=== PATIENT | female | born 1980 ===

== ENCOUNTER 2025-07-07 09:48 | Emergency (ER) | payer OTHER, SELFPAY ==
[2025-07-07] VITALS (7 sets, daily range): BP systolic 126–154; BP diastolic 54–76; PULSE 67–91; RESP 16–20; TEMP 36.9–37.2; O2SAT 96–99; BMI 26.8
--- NOTE | ~2025-07-07 | XR_ITS ---
EXAMINATION: XR LUMBOSACRAL SPINE CLINICAL INFORMATION: atraumatic low back pain COMPARISON: None available. TECHNIQUE: AP and lateral views. FINDINGS: Levoconvex curvature of the lumbar spine. Grade 1 anterolisthesis L4-5. Mild endplate sclerosis at multiple levels. Decreased intervertebral disc height at L4-5. Cylindrical shaped structure overlapping the left hemisacrum. Exact location. XR/XR lumbar spine 2-3V IMPRESSION: Spondylosis and Grade 1 anterolisthesis L4-5. Levoconvex scoliosis. Electronically signed by: Pedro Chandler MD 07/07/2025 02:15 PM EDT
--- NOTE | ~2025-07-07 | CT_ITS ---
CLINICAL HISTORY: right flank pain, white count CT abdomen and pelvis with contrast Comparison: None available Findings: No consolidation at the lung bases. Unremarkable gallbladder and bladder. No hydronephrosis or nephrolithiasis. The kidneys enhance normally. 2.0 cm right corpus luteum. Fibroid uterus. The other solid organs are unremarkable. No bowel wall thickening or dilation. A normal appendix is identified. No aneurysm. [id number] calcified atherosclerotic disease. No lymphadenopathy. No ascites. No acute osseous abnormality. Impression: No acute pathology. Right lower quadrant pain could be secondary to a normal right corpus luteum. This document has been electronically signed by: Yvrose Chang MD on 07/07/2025 18:27:43
--- OUTSIDE RECORDS SUMMARY | 2025-07-07 13:23 | XMS_ITS | Clinical Summary ---
Author Organization [facility] Address [address] [place] [address] Phone Care Team Providers Care Insecticide Sprayer Name Role Phone Sandhya Aleman NP Primary Care Provider + Allergies Active Allergy Reactions Criticality Noted Date Comments Penicillin 02/14/2025 Medical History Medical History Date Comments Diabetes ([facility] V24, [facility] V28) DX:Diabetes ([facility]) Asthma DX:Asthma Diabetes mellitus type 2 in nonobese ([facility] V24, [facility] V28) 04/05/2019 DX:Diabetes mellitus type 2 in nonobese ([facility]) Family History Medical History Relation Name Comments Breast cancer Mother Relation Name Status Comments Mother Social History Tobacco Use Types Packs/Day Years Used Date Smoking Tobacco: Every Day Smokeless Tobacco: Never Alcohol Use Standard Drinks/Week Comments Yes 0 (1 standard drink = 0.6 oz pur e alcohol) Comments Unknown Sex and Gender Information Value Date Recorded Sex Assigned at Not on file Legal Sex Female 8:01 AM EST Gender Identity Not on file Sexual Orientation Not on file Obstetrics History Last Filed Vital Signs Vital Sign Reading Time Taken Comments Blood Pressure 126/89 02/14/2025 9:52 AM EDT Pulse 88 02/14/2025 9:52 AM EDT Temperature 36.9 C (98.4 F) 02/14/2025 9:52 AM EDT Respiratory Rate 18 02/14/2025 9:52 AM EDT Oxygen Saturation 99% 02/14/2025 9:52 AM EDT Inhaled Oxygen Concentration - - Weight 77.1 kg (170 lb) 02/14/2025 9:52 AM EDT Height 170.2 cm (5' 7 ) 02/14/2025 9:52 AM EDT Body Mass Index 26.63 02/14/2025 9:52 AM EDT Plan of Treatment Health Maintenance Due Date Last Done Comments Diabetes: Annual Foot Exam 1988 Diabetes: Annual Retina Eye Exam 1988 DTaP,Tdap,and Td Vaccines (1 - Tdap) 1997 Hepatitis B Vaccines (1 of 3 - 19+ 3-dose series) 1997 Pneumococcal Vaccine: Pediatrics (0 to 5 Years) and At-Risk Patients (6 to 49 Years) (1 of 2 - PCV) 1997 Cervical Cancer Screening: Pap Smear 1999 Cholesterol Screening (Lipid Panel) 11/03/2022 Colorectal Cancer Screening: Colonoscopy 11/03/2022 HIV Screening 11/03/2022 Hepatitis C Screening 11/03/2022 Social Influencers of Health Screening 11/03/2022 Diabetes: Annual Urine Albumin-Creatinine Ratio (uACR) 11/15/2022 Diabetes: Blood Sugar Control Test (HGBA1C) 11/15/2022 COVID-19 Vaccine ( season) 2024 05/16/2022, 11/07/2021, 10/17/2021 Depression Screening 12/01/2024 Breast Cancer Screening 06/12/2025 06/12/20 23, 01/14/2022, 01/08/2021, Additional history exists Influenza Vaccine (#1) 2025 12/21/2024, 2019 Diabetes: Annual GFR (Glomerular Filtration Rate) 02/14/2026 02/14/2025 HIB Vaccines Aged Out No longer eligi ble based on patient's age to complete this topic HPV Vaccines Aged Out No longer eligi ble based on patient's age to complete this topic Hepatitis A Vaccines Aged Out No long er eligible based on patient's age to complete this topic IPV Vaccines Aged Out No longer eligi ble based on patient's age to complete this topic MMR Vaccines Aged Out No longer eligi ble based on patient's age to complete this topic Meningococcal ACWY Vaccine Aged Out N o longer eligible based on patient's age to complete this topic Meningococcal B Vaccine Aged Out No l onger eligible based on patient's age to complete this topic RSV Immunization Patients Under 20 months Aged Out No longer eligible based on patient's age to complete this topic Varicella Vaccines Aged Out No longer eligible based on patient's age to complete this topic Procedures Procedure Name Priority Date/Time Associated Diagnosis Comments BASIC METABOLIC PANEL STAT 02/14/2025 10:21 AM EDT ARTHUR SCREENING DIGITAL Routine 06/12/2023 7:35 AM EDT Encounter for screening mammogram for malignant neoplasm of breast from Last 3 Months or Most Recently Relevant to Health Maintenance Results * (ABNORMAL) Basic metabolic panel (02/14/2025 10:21 AM EDT) Sodium 138 133 - 145 mmol/L LAB CHEMISTRY METHOD 02/14/2025 11:05 AM [facility] Potassium 4.3 3.5 - 5.5 mmol/L LAB CHEMISTRY METHOD 02/14/2025 11:05 AM [facility] Chloride 107 96 - 110 mmol/L LAB CHEMISTRY METHOD 02/14/2025 11:05 AM [facility] CO2 25 21 - 32 mmol/L LAB CHEMISTRY METHOD 02/14/2025 11:05 AM [facility] Anion Gap 6 3 - 11 LAB CHEMISTRY METHOD 02/14/2025 11:05 AM [facility] Glucose 102(H) 70 - 100 mg/dL LAB CHEMISTRY METHOD 02/14/2025 11:05 AM [facility] BUN 12 5 - 25 mg/dL LAB CHEMISTRY METHOD 02/14/2025 11:05 AM [facility] Creatinine 0.86 0.50 - 1.10 mg/dL LAB CHEMISTRY METHOD 02/14/2025 11:05 AM [facility] eGFR 84 >=60 mL/min/1. 73m2 LAB CHEMISTRY METHOD 02/14/2025 11:05 AM [facility] Comment:Calculation based on the Chronic Kidney Disease Epidemiology Collaboration (CKD-EPI) equation refit without adjustment for race. BUN/Creatinine Ratio 14.0 LAB CHEMISTRY METHOD 02/14/2025 11:05 AM EDT [facility] Calcium 9.2 8.5 - 10.5 mg/dL LAB CHEMISTRY METHOD 02/14/2025 11:05 AM EDT [facility] Blood Venous blood specimen / Unknown Venipuncture / Unknown 02/14/2025 10:21 AM EDT 02/14/2025 10:28 AM EDT us Dakota Palma MD LAB BLOOD ORDERABLES Tonia stearns Result [facility] [address] [place] [address], * ARTHUR SCREENING DIGITAL (06/12/2023 7:35 AM EDT) Anatomical Region Laterality Modality Mammography 06/11/2023 8:03 AM EDT Narrative 06/12/2023 7:35 AM EDT [facility] Diagnostic Imaging Department [address] [place] [address] Patient: JOSEPH SOSA /Age/Sex: 1980 - 42 - F Unit#: [id number] Location/Status: SPDIMAM/REG CLI Mnemonic/Ordering Site: DIGSC/SPMAM Ordering Physician: MALCOLM KOTHARI MD [facility] Screening Digital - 06/11/23821 Report Status:Signed EXAM: [facility] Screening Digital EXAM DATE AND TIME: 06/11/2023 8:22 AM HISTORY: Screening COMPARISON: 01/14/2022 through 09/28/2018 TECHNIQUE: Bilateral digital breast tomosynthesis was performed in the CC and MLO projections. Computer aided detection with [employer] 3D 3.1 was employed. TISSUE DENSITY: c. The breasts are heterogeneously dense, which may obscure small masses. FINDINGS: No suspicious masses, grouped microcalcifications, or areas of architectural distortion are seen. The skin and vascularity are unremarkable. IMPRESSION: Stable mammographic appearance of the breasts. No evidence of malignancy is seen. A negative mammogram presence of clinically suspicious palpable abnormality does not preclude the possibility of malignancy or alternatively indications for biopsy. BI-RADS: Category 1: Negative RECOMMENDATION(S): 1: Routine screening mammogram BILATERAL in 1 year. 3341F, 7025F Dictating Physician: DIPESH CORTES MD Electronically Signed by: DIPESH CORTES MD Dic Date/Time: 06/12/2331 Sign date/Time: 06/12/23 07 Procedure Note Kenny Whitmore MD - 01/06/2024 [facility] Diagnostic Imaging Department [address] [place] [address] Patient: JOSEPH SOSA /Age/Sex: 1980 - 42 - F Unit#: [id number] [facility] Mnemonic/Ordering Site: [facility] Ordering Physician: MALCOLM KOTHARI MD [facility] Screening Digital - 06/11/23 - 821 Report Status:Signed EXAM: [facility] Screening Digital EXAM DATE AND TIME: 06/11/2023 8:22 AM HISTORY: Screening COMPARISON: 01/14/2022 through 09/28/2018 TECHNIQUE: Bilateral digital breast tomosynthesis was performed in the CCand MLO projections. Computer aided detection with [employer] 3D 3.1was employed. TISSUE DENSITY: c. The breasts are heterogeneously dense, which mayobscure small masses. FINDINGS: No suspicious masses, grouped microcalcifications, or areas ofarchitectural distortion are seen. The skin and vascularity are unremarkable. IMPRESSION: Stable mammographic appearance of the breasts. No evidence of malignancyis seen. A negative mammogram presence of clinically suspicious palpableabnormality does not preclude the possibility of malignancy or alternativelyindications for biopsy. BI-RADS: Category 1: Negative RECOMMENDATION(S): 1: Routine screening mammogram BILATERAL in 1 year. 3341F, 7025F Dictating Physician: DIPESH CORTES MD Electronically Signed by: DIPESH CORTES MD Dic Date/Time: 06/12/23730 Sign date/Time: 06/12/23734 Malcolm Kothari MD IMG BI PROCEDURES Final Result from Last 3 Months or Most Recently Relevant to Health Maintenance Insurance [place] [employer] [place] [employer]AGE [address] [place] [address] Care Teams Insecticide Sprayer Relationship Specialty Start Date End Date Sandhya Aleman NP [address] [place] [address] PCP - General Family Medicine 02/14/25
--- NOTE | 2025-07-07 13:27 | ED_ITS ---
HPI - Back Pain/Injury General Chief Complaint: Back Pain/Injury Stated Complaint: pain from back to r side abd Time Seen by Provider: 07/07/25 13:13 Source: patient Mode of arrival: ambulatory Limitations: no limitations History of Present Illness ED Provider: YANNI TAVARES PA-C HPI Narrative: 44-year-old female presents to the ED today for evaluation of right flank/back pain that began acutely yesterday while she was seated at home. Pain radiates to the right side of her abdomen. Pain has been constant since onset, waxing and waning in severity. At its worse, pain is 20/10. She reports 3 episodes of urinary incontinence as she was unable to make it to the bathroom in time due to her pain. She knew she had to void however did not make it in time. She did not trial anything for the pain at home. Denies any blunt injury or trauma to the back. Denies history of IV drug use. Denies history of spinal surgery. Denies fever, chills, neck pain, bowel or bladder retention, numbness/tingling/weakness of the lower extremities, saddle anesthesia. No urinary symptoms. No history of kidney stones. Related Data Previous Rx's ?Medication ?Instructions ?Recorded cyclobenzaprine 5 mg tablet 5 mg PO Q8H 3 days #9 tabs 07/07/25 lidocaine 5 % topical patch 1 patch topical DAILY #15 ea 07/07/25 (Lidoderm) nitrofurantoin 100 mg PO BID 7 days #14 cap s 07/07/25 monohydrate/macrocrystals 100 mg capsule Allergies Allergy/AdvReac Type Severity Reaction Status Date / Time Penicillins Allergy Hives Verified 07/07/25 09:54 Review of Systems 2 Review of Systems: Constitutional: No fever, chills, fatigue, night sweats, weight changes ENT/Mouth: No ear pain, hearing loss, nasal congestion, sinus pain, rhinorrhea, sore throat Eyes: No eye pain, swelling, redness, vision changes, discharge Cardio: No chest pain, palpitations, LECHUGA, orthopnea, peripheral edema Pulm: No SOB, cough, sputum, wheezing, dyspnea, hemoptysis GI: No nausea, vomiting, hematemesis, abdominal pain, diarrhea, constipation, hematochezia, melena : No irregular bleeding, dysuria, frequency, urgency, hesitancy, hematuria, flank pain, urinary flow changes, urinary incontinence or retention, +right flank pain MSK: No neck pain, joint pain, myalgias, +back pain Skin: No lesions, rashes Neuro: No weakness, numbness, paresthesias, LOC, dizziness, headache All other systems reviewed and are negative. [facility] Past Medical History Attestation statement: The following information was validated with the patient. Source: old records reviewed and nursing notes reviewed Physical Exam 2 Vital Signs: Vital Signs: Last Vital Signs Temp 98.9 F 07/07/25 22:59 Pulse 82 07/07/25 22:59 Resp 20 07/07/25 22:59 BP 138/72 07/07/25 22:59 Pulse Ox 96 07/07/25 22:59 O2 Del Method Room Air 07/07/25 22:59 BMI result Body Mass Index 26.8 Vital signs stable, afebrile Const: General: cooperative, healthy appearing, comfortable, no acute distress, alert, awake and Physically active Orientation/consciousness: p atient oriented x3 HEENT: Head: Yes normal to inspection, Yes normocephalic and Yes atraumatic Eyes: General: appearance normal, both eyes and all related structures P upils: Equal, round and reactive pupils present EOM: EOMs intact bilaterally Neck: Other: + no cervical midline spinous tenderness or step-off deformity. Neck: Yes normal visual inspection, Yes full ROM and Yes no meningeal signs Resp: Effort & Inspection: normal respiratory effort Auscultation: clear to auscultation bilaterally Cardio: Rate: regular rate Rhythm: regular rhythm GI: Other: +right cvat Inspection: Yes normal to inspection Palpation (GI): Soft to palpation and nontender Back/Spine/Pelvis: Other: No midline spinous tenderness. No paraspinal muscle tenderness. No step off deformity. Neuro: Other: Strength 5/5 intact throughout.? No saddle anesthesia.? Sensation intact to light touch.? Neurovascular intact distally.? General: patient oriented x3, gait normal and no meningeal signs Cranial nerves: Yes Equal, round and reactive pupils present Gait exam (Neuro): N ormal gait present Course Course Course Narrative: 1899 -- CBC showing slight leukocytosis to 11.4 with left shift, of unknown significance. H&H stable. No priors to compare to. Chemistry without acute electrolyte abnormality requiring intervention. No GEORGES. Random glucose 231. no anion gap. beta hcg undetectable. Lumbar x-ray showing spondylosis and grade 1 anterolisthesis L4-L5. CT abdomen/pelvis without renal stone, no perinephric stranding, no bowel wall thickening, no bowel obstruction, normal appendix. There is a 2 cm right corpus luteum. Fibroid uterus. > patient medicated with Toradol and morphine with minimal improvement in discomfort. I attempted to assist patient out of bed to the bathroom. Reports spasming to the right side of her lower back. Will trial p.o. Flexeril with re- evaluation. She is still has not given us a urine sample. L of fluids running at this time. 2027 -- attempted to get patient out of bed after receiving Flexeril. Still reporting pain, difficulty moving around in bed. Unable to get her out of bed to urinate. She has been here for over 10 hours at this point and has not voided. Bladder scan ordered. dilaudid ordered. 2099 -- Patient able to stand and ambulate to commode. Was able to void a large amount of urine. urinalysis shows UTI - will treat w/ macrobid. Negative for . Medicated with Dilaudid with improvement in pain. requesting to ambulate outside to smoke her vape. > patient is ambulating at this time, no neuro deficits, improvement in pain with dilaudid. she has chronic lumbar issues, follows with spine & sports medicine. advised to contact their office for follow up. Patient has remained stable throughout ED visit today. Discussed worrisome signs and symptoms and when to return to the ED. All questions answered at this time. Patient is agreeable with disposition and stable for discharge. Medications Administered Discontinued Medications Generic Name Dose Route Start Last Admin Trade Name Freq PRN Reason Stop Dose Admin Cyclobenzaprine HCl 10 mg 07/07/25 18:56 07/07/25 19:48 Cyclobenzaprine Hcl 10 Mg Tablet PO 07/07/25 18:57 10 mg ONCE ONE Administration Hydromorphone HCl 1 mg 07/07/25 20:29 07/07/25 20:57 Hydromorphone Hcl 1 Mg/Ml Syringe IVPUSH 07/07/25 20:30 1 mg ONCE ONE Administration Protocol Sodium Chloride 1,000 mls @ 999 mls/hr 07/07/25 16:30 07/07/25 18:00 Ns IV 07/07/25 17:30 Infused .Q1H1M THANH Infusion Iohexol 100 ml 07/07/25 17:23 07/07/25 17:24 Iohexol 350 Mg/Ml 100 Ml Infus..Btl IV 07/07/25 17:24 85 ml ONCE ONE Administration Ketorolac Tromethamine 30 mg 07/07/25 15:00 07/07/25 15:15 Ketorolac Tromethamine 30 Mg/Ml Vial IVPUSH 07/07/25 15:01 30 mg ONCE ONE Administration Lidocaine 1 patch 07/07/25 14:18 07/07/25 15:15 Lidocaine 4 % Patch Adh..Patch TRANSDERMA 07/07/25 14:19 1 patch ONCE ONE Administration Protocol Morphine Sulfate 4 mg 07/07/25 16:28 07/07/25 16:51 Morphine Sulfate 4 Mg/Ml Cartridge IVPUSH 07/07/25 16:29 4 mg ONCE ONE Administration Protocol Ondansetron HCl 4 mg 07/07/25 21:44 07/07/25 21:46 Ondansetron Hcl 4 Mg/2 Ml Vial IVPUSH 07/07/25 21:45 4 mg ONCE ONE Administration Medical Decision Making Medical Decision Making MDM Narrative: 44-year-old female presents to the ED today for evaluation of right flank pain that began acutely yesterday while she was seated at home. Patient hypertensive on arrival. Afebrile. She is uncomfortable appearing however no acute distress. On exam, there is no midline spinous tenderness or step-off deformities. There is no paraspinal muscle tenderness to palpation. No overlying skin changes. There is right CVAT. Neurovascularly intact distally. Ambulating with slow but steady gait. Concern for UTI, renal colic, nephrolithiasis, hydronephrosis, MSK sprain/strain, fracture, subluxation, disc herniation, sciatica. Unlikely cord compression, cauda equina, Guillain-Carmen, epidural abscess. Plan for x-ray, screening labs, urinalysis, pain control, re-evaluation. Differential Diagnosis Differential Diagnoses: The differential diagnosis associated with the presentation includes as above Admission/Observation Not indicated. Lab Data MDM Lab Attestation statement: I reviewed the patient's lab results. As above 07/07/25 15:07 08/07/25 15:07 Labs: Lab Results 07/07/25 07/07/25 Range/Units 15:07 20:55 WBC 11.4 H (4.8-10.8) X10*3/uL RBC 3.86 L (4.20-5.50) X10*6/uL Hgb 12.5 (12.0-16.0) g/dl Hct 36.1 L (37.0-47.0) % MCV 93.5 (80.0-98.0) fL MCH 32.4 (27.0-33.0) pg MCHC 34.6 (31.0-35.0) g/dl RDW 13.3 (11.0-16.0) % Plt Count 250 (160-400) X10*3/uL MPV 11.6 (9.4-12.3) fL Immature Gran % (Auto) Cancelled Neut % (Auto) Cancelled Lymph % (Auto) Cancelled Starke % (Auto) Cancelled Eos % (Auto) Cancelled Baso % (Auto) Cancelled Lymph # (Auto) Cancelled Starke # (Auto) Cancelled Eos # (Auto) Cancelled Baso # (Auto) Cancelled Abs Immat Gran (auto) Cancelled Absolute Neuts (auto) Cancelled Absolute Nucleated RBC 0.000 (0.0-0.012) X10*3/uL Nucleated RBC % (auto) 0.0 (0.0-0.2) /100WBC Neutrophils % (Manual) 83 H (45-73) % Band Neutrophils % 0 L (3-5) % Lymphocytes % (Manual) 9 L (20-40) % Monocytes % (Manual) 7 (2-11) % Eosinophils % (Manual) 1 (0-4) % Abs Neuts (Manual) 9.5 H (2.0-8.3) X10*3/uL Lymphocytes # (Manual) 1.0 L (1.2-4.9) X10*3/uL Monocytes # (Manual) 0.8 (0.1-1.2) X10*3/uL Eosinophils # (Manual) 0.1 (0.0-0.4) X10*3/uL Platelet Estimate NORMAL (NORMAL) Plt Morphology Comment NORMAL RBC Morphology NORMAL Sodium 141 (135-145) mmol/L Potassium 4.1 (3.3-5.1) mmol/L Chloride 105 (96-108) mmol/L Carbon Dioxide 28 (22-29) mmol/L Anion Gap 12 (12-20) BUN 9 (9-16) mg/dL Creatinine 0.74 (0.5-1.4) mg/dL Estim Creat Clear Calc 105.3 Estimated GFR > 60 Random Glucose 231 H (60-115) mg/dL Calcium 9.0 (8.4-10.2) mg/dL Magnesium 2.1 (1.6-2.6) mg/dL Total Bilirubin 0.4 (0.0-1.0) mg/dL AST 19 (5-31) U/L ALT 28 (0-31) U/L Alkaline Phosphatase 73 (39-117) U/L Total Protein 7.4 (6.5-8.0) g/dL Albumin 4.4 (3.5-5.0) g/dL Beta HCG, Quant < 2 mIU/mL Urine Color Yellow Urine Appearance Clear Urine pH 6.5 (5.0-9.0) Ur Specific [place] >= 1.030 H (1.005-1.025) Urine Protein Trace (Neg-Trace) mg/dL Urine Glucose (UA) >=1000 H (Negative) mg/dL Urine Ketones Trace (Negative) mg/dL Urine Blood Negative (Negative) Urine Nitrite Negative (Negative) Ur Leukocyte Esterase Negative (Negative) Urine RBC 0-2 (0-2) /HPF Urine WBC 0-5 (0-5) /HPF Ur Squamous Epith Cells 0-2 (0-2) /HPF Urine Bacteria 3+ (None Seen) Hyaline Casts 0-2 (0-2) /LPF Urine Test NEGATIVE (NEGATIVE) Independent Interpretation I performed an independent interpretation of an: Plain X-Ray and CT Scan Interpretation: X-ray lumbar spine without acute fracture ct a/p without renal stone, no perinephric stranding, no bowel obstruction Radiology Impression Discussion of test interpretation with radiology: I have reviewed the radiologist's reading. Radiologist Impression: Date of Service: 07/07/25 Procedure(s): XR lumbar spine 2-3V Accession Number(s): [id number] cc: JANI RUTH MD; Yanni Tavares~ EXAMINATION: XR LUMBOSACRAL SPINE CLINICAL INFORMATION: atraumatic low back pain COMPARISON: None available. TECHNIQUE: AP and lateral views. FINDINGS: Levoconvex curvature of the lumbar spine. Grade 1 anterolisthesis L4-5. Mild endplate sclerosis at multiple levels. Decreased intervertebral disc height at L4-5. Cylindrical shaped structure overlapping the left hemisacrum. Exact location. XR/XR lumbar spine 2-3V IMPRESSION: Spondylosis and Grade 1 anterolisthesis L4-5. Levoconvex scoliosis. Electronically signed by: Pedro Chandler MD 07/07/2025 02:15 PM EDT RP Date of Service: 07/07/25 Procedure(s): CT abdomen pelvis w IV con Accession Number(s): [id number] cc: JANI RUTH MD; Yanni Tavares~ Report Number: [id number]: Total DLP = 753.00 mGy-cm CLINICAL HISTORY: right flank pain, white count CT abdomen and pelvis with contrast Comparison: None available Findings: No consolidation at the lung bases. Unremarkable gallbladder and bladder. No hydronephrosis or nephrolithiasis. The kidneys enhance normally. 2.0 cm right corpus luteum. Fibroid uterus. The other solid organs are unremarkable. No bowel wall thickening or dilation. A normal appendix is identified. No aneurysm. [id number] calcified atherosclerotic disease. No lymphadenopathy. No ascites. No acute osseous abnormality. Impression: No acute pathology. Right lower quadrant pain could be secondary to a normal right corpus luteum. This document has been electronically signed by: Yvrose Chang MD on 07/07/2025 18:27:43 External Record Review External record reviewed: Inpatient record Prescription Management I considered prescription management with: Pain Medication and Other (Muscle relaxer) Social Determinants Patient?s care significantly limited by Social Determinants of Health including: Other Social Determinant of Health Critical Care Time Critical Care Time Critical Care Time: Yes Total Critical Care Time: 32 Attestation: Critical care time in the amount of 32 minutes has been provided to the patient in terms of direct patient care, frequent reevaluation on IV morphine, review and interpretation of medical data and results, and management of potentially life-threatening conditions. This is all outside of any medical procedures. Discharge Plan Discharge Clinical Impression: Lumbar back pain, Urinary tract infection Patient Disposition: Home, Self-Care Instructions: Urinary Tract Infection in Women (ED), Acute Low Back Pain (ED) Additional Instructions: Your blood work is reassuring. Your urine shows a urinary tract infection. I am sending you an antibiotic for treatment - take this to completion. The xray of your lumbar spine does not show fracture. It shows chronic degenerative changes. The CT scan of your abdomen is unremarkable. You need to follow up with your spine doctor. Avoid bending, lifting, or twisting. Use ice several times per day for 20 minutes at a time for the next 48 hours and then change to heat. I recommend you take 600mg ibuprofen every 6 hours or tylenol 650mg every 6 hours as needed for pain. If needed, you can alternate these medications so that you take one medication every 3 hours. For example, at noon take ibuprofen, then at 3pm take tylenol, then at 6pm take ibuprofen. Flexeril is a muscle relaxer. Take this at night as it makes you drowsy. Do not drive, drink alcohol, or operate machinery while taking it. Lidoderm patches are numbing patches. Apply to painful areas. Return to the Emergency Department if you experience worsening back pain, difficulty walking, fevers, numbness, tingling, incontinence, or any other concerning symptoms. In the case of an emergency call 911. Prescriptions: New cyclobenzaprine 5 mg tablet 5 mg PO Q8H 3 Days Qty: 9 0RF lidocaine [Lidoderm] 5 % adhesive patch,medicated 1 patch topical DAILY Qty: 15 0RF Rx Instructions: leave on most painful area for up to 12 hrs nitrofurantoin monohyd/m-cryst 100 mg capsule 100 mg PO BID 7 Days Qty: 14 0RF Rx Instructions: must administer with a meal/food Referrals: Jani Ruth MD [Primary Care Provider, Internal Medicine] Interventions: ED Discharge Assessment Last Done: 07/07/25 22:59 Discharge Date/Time: 07/07/25 22:59 Print Language: Palauan
--- NOTE | 2025-07-07 15:00 | PC.NURSE ---
Patient required 2 assist to stand/pivot from recliner to wheelchair for imaging. Was initially refusing, but discussed importance of obtaining imaging to determine cause of severe back pain. Patient is stiff, tearful. Family member (mother) at bedside. Plan for labs & IV insertion.
[2025-07-07] MEDS: Lidocaine 4 % Patch ADH..PATCH 1 PATCH TRANSDERMA (15:15)
[2025-07-07 15:24] LABS: Hematocrit 36.1 % (37.0-47.0); Hemoglobin 12.5 g/dl (12.0-16.0); Mean Corpuscular HGB Conc 34.6 g/dl (31.0-35.0); Mean Corpuscular Hemoglobin 32.4 pg (27.0-33.0); Mean Corpuscular Volume 93.5 fL (80.0-98.0); NRBC Abs Auto 0.000 X10*3/uL (0.0-0.012); NRBC Pct Auto 0.0 /100WBC (0.0-0.2); Platelet Count 250 X10*3/uL (160-400); Red Blood Count 3.86 X10*6/uL (4.20-5.50); WBC ABN SCTR FOR CBC 1; White Blood Count 11.4 X10*3/uL (4.8-10.8)
[2025-07-07 15:28] LABS: Alanine Aminotransferase 28 U/L (0-31); Albumin Level 4.4 g/dL (3.5-5.0); Alkaline Phosphatase 73 U/L (39-117); Anion Gap 12 (12-20); Aspartate Amino Transferase 19 U/L (5-31); Blood Urea Nitrogen 9 mg/dL (9-16); Calcium 9.0 mg/dL (8.4-10.2); Carbon Dioxide 28 mmol/L (22-29); Chloride 105 mmol/L (96-108); Creatinine Clr Calc Pharmacy 105.3; Estimated Glomerular Filt Rate > 60; Magnesium 2.1 mg/dL (1.6-2.6); Potassium 4.1 mmol/L (3.3-5.1); Sodium 141 mmol/L (135-145); Total Protein 7.4 g/dL (6.5-8.0)
[2025-07-07 15:52] LABS: Eosinophils Absolute Manual 0.1 X10*3/uL (0.0-0.4); Eosinophils Percent Manual 1 % (0-4); Lymphocytes Absolute Manual 1.0 X10*3/uL (1.2-4.9); Lymphocytes Percent Manual 9 % (20-40); Monocytes Absolute Manual 0.8 X10*3/uL (0.1-1.2); Monocytes Percent Manual 7 % (2-11); Neutrophils Percent Manual 83 % (45-73)
[2025-07-07 15:55] LABS: RBC Morphology NORMAL
[2025-07-07 15:56] LABS: Band Neutrophils Percent 0 % (3-5); Neutrophils Absolute Manual 9.5 X10*3/uL (2.0-8.3)
[2025-07-07] MEDS: iohexoL 350 MG/ML 100 ML INFUS..BTL IV (17:24)
[2025-07-07 21:03] LABS: Appearance Urine Clear; Glucose Urine UA >=1000 mg/dL (Negative); PH 6.5 (5.0-9.0); Specific Gravity - Urine >= 1.030 (1.005-1.025); UMIC TRIGGER UACC YES
[2025-07-07 21:04] LABS: UPreg QC Valid YES
--- NOTE | 2025-07-07 21:50 | PC.NURSE ---
Upon attempting to discharge the patient, she removed her own shirt and began complaining of feeling nauseous & sweaty. Family member at bedside stated I don't like how she looks . CHUCHO Tavares's shift ended just prior to this discharge. Spoke with Dr. Arciniega regarding complaints, okay to give Zofran 4mg IV push. Medicated as ordered. Pt requesting to see a provider again, stating I think I'm having a reaction or something . Was given Dilaudid within the past hour. Dr. Arciniega aware. Care ongoing by this RN.
--- NOTE | 2025-07-07 22:21 | PC.NURSE ---
Dr. Arciniega went to bedside to speak with the patient. Plan for discharge home.
== END 2025-07-07 22:59 | disposition home or self-care (01) ==
PROVIDERS: Physician Assistant Medical; Emergency Provider Emergency Medicine; PCP Internal Medicine
DX: M54.89 Other dorsalgia (principal); N39.0 Urinary tract infection, site not specified; I10 Essential (primary) hypertension; D25.9 Leiomyoma of uterus, unspecified; M47.816 Spondylosis without myelopathy or radiculopathy, lumbar region; Z79.899 Other long term (current) drug therapy
CPT/HCPCS: 36415; 72100; 74177; 80053; 81001; 81025; 83735; 84702; 85007; 85027; 96361; 96374; 96375; 99284; J1171; J1885; J2270; J2405; Q9967

== ENCOUNTER → 2025-07-07 13:17 | Outpatient (BNV) | payer OTHER, SELFPAY | PROVIDERS: Emergency Provider Emergency Medicine; PCP Internal Medicine; Visit Provider Radiology Diagnostic Radiology | DX: R10.31 Right lower quadrant pain (principal); M51.360 Other intervertebral disc degeneration, lumbar region with discogenic back pain only | CPT/HCPCS: 72100; 74177 ==